=== PATIENT | female | born 2000 | race Caucasian/White ===

== ENCOUNTER 2020-06-04 09:33 | Emergency (ER) | payer BC, SELFPAY ==
[2020-06-04 09:51] VITALS: BP 120/65; PULSE 56; RESP 16; TEMP 36.3; O2SAT 99
--- NOTE | 2020-06-04 09:53 | ED.URI ---
HPI - URI/Sore Throat General Chief Complaint: Upper Respiratory Infection Stated Complaint: Sore throat,Congestion Time Seen by Provider: 06/04/20 09:54 Source: patient and RN notes reviewed Mode of arrival: ambulatory Limitations: no limitations History of Present Illness HPI Narrative: 19-year-old female presents with concern for 3-day history of sore throat, nasal congestion, postnasal drainage, dry cough, intermittent body aches and chills. Reports has been taking NyQuil with some relief. She denies any known sick contacts. Denies loss of sense of taste or smell, shortness of breath. MD elicited complaint: sore throat Related Data Home Medications Medication Instructions Recorded Confirmed norethindrone-e.estradiol-iron tablet 06/04/20 Allergies Allergy/AdvReac Type Severity Reaction Status Date / Time No Known Allergies Allergy Unverified 06/04/20 09:42 Review of Systems Review of Systems: Narrative: CONSTITUTIONAL: Reports malaise, chills. Denies sweats, or fever. EYES: Denies visual changes, redness, or discharge. ENT: Reports rhinorrhea, congestion, sore throat. Denies sinus pain, otalgia. CARDIOVASCULAR: Denies chest pain, palpitations, or edema. RESPIRATORY: Reports dry cough. Denies dyspnea. GASTROINTESTINAL: Denies abdominal pain, nausea, vomiting, diarrhea SKIN: Denies rash or itching. MUSCULOSKELETAL: Reports myalgia. NEUROLOGIC: Reports headache. All systems reviewed & are unremarkable except as noted in HPI and below PMFSH Social History Social History Smoking status: Never smoker Alcohol intake: never Comments At time of signature, agree with nursing past medical, surgical, social and family history. There is no relevant family history pertinent to the presenting complaint Exam Narrative: Exam Narrative: GENERAL: Well-appearing, well-nourished, and in no acute distress. HEAD: Normocephalic EYES: PERRLA, conjunctivae clear ENT: Nares clear, turbinates edematous and erythematous, clear discharge. Mucous membranes moist. TM pearly macias with dull light reflex bilaterally; no tragal tenderness. Oropharynx mildly erythematous without lesions. Tonsils enlarged and without exudate, no drooling, no hoarseness, no trismus, uvula midline. NECK: Supple. No lymphadenopathy CHEST: Clear to auscultation, breath sounds equal. No wheezing, rhonchi, rales, or stridor. No respiratory distress, speaks in full sentences. HEART: Regular rate and rhythm. No murmur heard. SKIN: Warm, dry, no rash. NEURO: Alert and oriented x3. PSYCH: Normal mood and affect Course Course Emergency Course: Patient is aware of diagnosis, understands and agrees to treatment plan. Anticipatory guidance given. Patient agrees to follow-up as directed and is aware of reasons to seek care at the emergency department. Portions of this record may have been created with voice recognition software Vital Signs Vital signs: Vital Signs Temperature 97.4 F L 06/04/20 09:51 Pulse Rate 56 L 06/04/20 09:51 Respiratory Rate 16 06/04/20 09:51 Blood Pressure 120/65 06/04/20 09:51 Pulse Oximetry 99 06/04/20 09:51 Temperature 97.4 F L 06/04/20 09:51 Pulse Rate 56 L 06/04/20 09:51 Respiratory Rate 16 06/04/20 09:51 Blood Pressure 120/65 06/04/20 09:51 Pulse Oximetry 99 06/04/20 09:51 Reviewed. MDM - URI/Sore Throat MDM Narrative Medical decision making narrative: Differential diagnosis considered: Villegas virus, strep pharyngitis, allergic rhinitis, upper respiratory tract infection, sinusitis, rhinosinusitis, nasopharyngitis. viral pharyngitis, otitis media, otitis externa, pneumonia, bronchitis, viral cough syndrome, viral syndrome, and influenza. Exam findings show no acute concerns or changes; patient is non-toxic appearing and is in no distress. Patient is appropriate for outpatient treatment and follow-up. Lab Data Attestation: I reviewed the patient's lab results. Labs: Strep Screen
[2020-06-05 18:30] LABS: SARS-CoV-2 RNA PCR Negative
== END 2020-06-04 10:15 | disposition home or self-care (01) ==
PROVIDERS: Emergency Provider Nurse Practitioner; PCP Pediatrics
DX: J06.9 Acute upper respiratory infection, unspecified (principal); Z20.822 Contact with and (suspected) exposure to COVID-19
CPT/HCPCS: 87081; 87426; 87880; 99213; C9803; G0463; U0003; U0005

== ENCOUNTER 2020-10-02 10:13 | Emergency (ER) | payer BC, SELFPAY ==
[2020-10-02 10:37] VITALS: BP 105/54; PULSE 70; RESP 16; TEMP 36.9; O2SAT 100
[2020-10-02 11:01] VITALS: BP 139/87; PULSE 72; RESP 18; TEMP 36.8; O2SAT 100
--- NOTE | 2020-10-02 11:01 | ED.EAR ---
HPI - Ear Problem General Chief complaint: Upper Respiratory Infection Stated complaint: Lt ear pain, headache Source: patient and RN notes reviewed Limitations: no limitations History of Present Illness HPI Narrative: The patient, a non-smoker/nondrinker, presents with couple day, nearly 1/2-week history of left ear discomfort. No discharge, swimming/water exposure, fever, URI?sinusitis,cough, loss of taste/smell, CP. Symptoms are mild, distinctly worse with palpation Related Data Home Medications Medication Instructions Recorded Confirmed norethindrone-e.estradiol-iron tablet 06/04/20 Allergies Allergy/AdvReac Type Severity Reaction Status Date / Time No Known Allergies Allergy Unverified 06/04/20 09:42 Review of Systems Review of Systems: Narrative: General/Constitutional: No weight loss,fever Eyes: N0: Redness,discharge Ears/Nose/Throat: No: Epistaxis,ear discharge Respiratory: Denies: Hemoptysis Gastrointestinal: No Vomiting, Bleeding-rectal Skin: No Lumps, eruption Neurologic: No Focal Weakness,Sz Hematologic: Denies: Petechiae/Purpura Psychiatric: No: Suicida ideationl All Other Systems: Reviewed and Negative PMFSH Social History Social History Smoking status: Never smoker Alcohol intake: never Comments At time of signature, agree with nursing past medical, surgical, social and family history. There is no relevant family history pertinent to the presenting complaint Exam Narrative: Exam Narrative: General Appearance: Well appearing, Well nourished EYE: PERRLA, Conjunctiva clear Ears: Left EAC with mucopus and TM obscured; right -auditory canal normal, TM normal Nose: no rhinorrhea, Mucousal erythema Mouth/Throat: MM moist, Uvula midline, no pharyngeal erythema Neck: Supple, No adenopathy Respiratory: No respiratory distress, Breath sounds equal, Musculoskeletal: Non tender, Normal strength Skin: Warm, Dry Neurological: A&O x3, Normal affect Course Vital Signs Vital signs: Vital Signs Temperature 98.4 F 10/02/20 10:37 Pulse Rate 70 10/02/20 10:37 Respiratory Rate 16 10/02/20 10:37 Blood Pressure 105/54 L 10/02/20 10:37 Pulse Oximetry 100 10/02/20 10:37 Temperature 98.2 F 10/02/20 11:01 Pulse Rate 72 10/02/20 11:01 Respiratory Rate 18 10/02/20 11:01 Blood Pressure 139/87 10/02/20 11:01 Pulse Oximetry 100 10/02/20 11:01 Medical Decision Making Vital Signs Vital Signs: Vital Signs Temperature 98.4 F 10/02/20 10:37 Pulse Rate 70 10/02/20 10:37 Respiratory Rate 16 10/02/20 10:37 Blood Pressure 105/54 L 10/02/20 10:37 Pulse Oximetry 100 10/02/20 10:37 Temperature 98.2 F 10/02/20 11:01 Pulse Rate 72 10/02/20 11:01 Respiratory Rate 18 10/02/20 11:01 Blood Pressure 139/87 10/02/20 11:01 Pulse Oximetry 100 10/02/20 11:01 Discharge Plan Discharge Clinical Impression: Otalgia, left ear Patient Disposition: Home, Self-Care Condition: Stable Instructions: Swimmer's Ear (ED) Prescriptions: New amoxicillin 875 mg tablet 875 mg PO Q12H Qty: 14 RF: 0 mfhjcxoy-iguwxhige-GG 3.5-10,000-1 mg/mL-unit/mL-% solution 4 drop RIGHT EAR Q8H Qty: 10 RF: 0 No Action norethindrone-e.estradiol-iron 1 mg-20 mcg (21)/75 mg (7) tablet RF: 0 Follow-up/Referrals: Mayela Patton MD [Primary Care Provider] -
== END 2020-10-02 11:11 | disposition home or self-care (01) ==
PROVIDERS: Emergency Provider Emergency Medicine; PCP Pediatrics
DX: H92.02 Otalgia, left ear (principal)
CPT/HCPCS: 99213; G0463

== ENCOUNTER 2021-07-25 10:26 | Emergency (ER) | payer BC, SELFPAY ==
[2021-07-25 10:39] VITALS: BP 101/51; PULSE 58; RESP 16; TEMP 36.6; O2SAT 100
--- NOTE | 2021-07-25 10:43 | ED.FEMALEGU ---
HPI - Female Genitourinary General Chief complaint: Urogenital-Female Stated complaint: uti complaint Time Seen by Provider: 07/25/21 10:44 Source: patient and RN notes reviewed Mode of arrival: ambulatory Limitations: no limitations History of Present Illness HPI Narrative: 20-year-old female presented for complaint of urinary frequency and burning with urination for about 3 days. Also endorses some lower abdominal pain and subjective fever. She denies nausea, vomiting, diarrhea, hematuria, flank pain, or vaginal discharge or irregular bleeding. She has not taken anything for symptoms. Related Data Home Medications Medication Instructions Recorded Confirmed norethindrone-e.estradiol-iron 1 tablet DAILY 07/25/21 07/25/21 [Blisovi Fe 03/28 (28)] Allergies Allergy/AdvReac Type Severity Reaction Status Date / Time No Known Allergies Allergy Verified 07/25/21 10:43 Review of Systems Review of Systems: CONSTITUTIONAL: Denies body aches, fever, chills, or sweats. CARDIOVASCULAR: Denies chest pain, palpitations, or edema. RESPIRATORY: Denies cough or dyspnea. GASTROINTESTINAL: Denies abdominal pain, nausea, vomiting, or diarrhea. GENITOURINARY: Reports dysuria, frequency SKIN: Denies rash, itching, or wounds. MUSCULOSKELETAL: Denies back pain or myalgia. [facility] Social History Social History Smoking status: Never smoker Alcohol intake: never Comments At time of signature, I have reviewed and agree with nursing past medical, surgical, social and family history unless otherwise noted. Please see nursing chart for further information. There is no relevant family history pertinent to the presenting complaint Exam Narrative: GENERAL: Well-appearing and in no acute distress. HEAD: Normocephalic EYES: EOMI. ENT: Mucous membranes pink and moist. NECK: Normal AROM. Supple. CHEST: No respiratory distress. Clear to auscultation. HEART: Regular rate and rhythm. ABDOMEN: Soft, nontender, nondistended, normal active bowel sounds. No CVA tenderness MUSCULOSKELETAL: No bony tenderness. SKIN: Warm, dry, no rash. NEURO: No focal deficits. Alert and oriented x3. Gait steady. PSYCH: Normal affect. No signs of depression or anxiety. Course Course Emergency Course: Patient is aware of diagnosis, understands and agrees to treatment plan. Anticipatory guidance given. Patient agrees to follow-up as directed and is aware of reasons to seek care at the emergency department. Portions of this record may have been created with voice recognition software Level of Care: Express Care Visit Vital Signs Vital signs: Vital Signs Temperature 97.8 F 07/25/21 10:39 Pulse Rate 58 L 07/25/21 10:39 Respiratory Rate 16 07/25/21 10:39 Blood Pressure 101/51 L 07/25/21 10:39 Pulse Oximetry 100 07/25/21 10:39 Temperature 97.8 F 07/25/21 10:39 Pulse Rate 58 L 07/25/21 10:39 Respiratory Rate 16 07/25/21 10:39 Blood Pressure 101/51 L 07/25/21 10:39 Pulse Oximetry 100 07/25/21 10:39 Reviewed MDM - Female Genitourinary Differential Diagnosis Differential diagnosis: Likely urinary tract infection, bacterial vaginosis and cystitis Lab Data Attestation: I reviewed the patient's lab results. Labs: Urine Characteristics Clear Discharge Plan Discharge Clinical Impression: Urinary tract infection Qualifiers: Urinary tract infection type: site unspecified Hematuria presence: without hematuria Qualified Code(s): N39.0 - Urinary tract infection, site not specified Patient Disposition: Home, Self-Care Condition: Stable Instructions: Antibiotic Form, Urinary Tract Infection in Women (ED) Additional Instructions: Your urine shows infection today. Take the antibiotic as prescribed until gone. The urine will be sent of for a culture to identify what type of bacteria is causin
== END 2021-07-25 11:00 | disposition home or self-care (01) ==
PROVIDERS: Emergency Provider Nurse Practitioner Family
DX: N39.0 Urinary tract infection, site not specified (principal)
CPT/HCPCS: 81003; 87086; 99213; G0463

== ENCOUNTER 2021-10-14 11:38 | Emergency (ER) | payer BC, SELFPAY ==
[2021-10-14 11:59] VITALS: BP 111/62; PULSE 67; RESP 16; TEMP 36.9; O2SAT 100
--- NOTE | 2021-10-14 12:48 | ED.EAR ---
HPI - Ear Problem General Chief complaint: Ear Stated complaint: Lt Ear Irritation Source: patient Mode of arrival: ambulatory Limitations: no limitations History of Present Illness HPI Narrative: 19-year-old female presents to [facility] with complaints of left ear pain for the past 2 to 3 weeks. Patient has been taking opha-[id number] Motrin Tylenol with minimal relief. Patient reports that she also started with congestion this morning. Patient denies fever, bodies, chills, nausea, vomiting or diarrhea. MD Complaint: ear pain Location: left ear Duration: constant Severity: mild Discharge from ear: Reports no Related Data Home Medications Medication Instructions Recorded Confirmed norethindrone 1 mg-ethinyl 1 tablet DAILY 07/25/21 10/14/21 estradiol 20 mcg (21)-iron 75 mg (7) tablet (Blisovi Fe 03/28 (28)) Allergies Allergy/AdvReac Type Severity Reaction Status Date / Time No Known Allergies Allergy Verified 10/14/21 11:58 Review of Systems Constitutional: Constitutional: Denies chills, Denies fatigue, Denies fever(s) and Denies weakness ENT: Denies vertigo, Denies dizziness and Denies epistaxis Comments: Left ear pain Cardiovascular: Cardiovascular: Denies chest pain and Denies rapid heart rate Respiratory: Respiratory: Denies chest congestion, Denies cough and Denies dyspnea Gastrointestinal: Gastrointestinal: Denies abdominal pain, Denies bloating, Denies constipation and Denies heartburn Musculoskeletal: Musculoskeletal: Denies arthralgias and Denies joint swelling Integumentary/Breasts: Skin/Breast: Denies rash Endocrine: Endocrine: Denies fatigue PMFSH Family History Family History (Updated 10/14/21 @ 12:50 by Cass Caballero APRN) Mother Diabetes mellitus Social History Social History Smoking status: Never smoker Alcohol intake: never Exam Const: General: healthy appearing Nutritional Appearance: well nourished Orientation/consciousness: patient oriented x3 Limitations: no limitations HENMT: Ears: Abnormal EAC present erythema on the left and edema on the left and TM abnormal bulging on the left, dull on the left and erythematous on the left General nose exam: Normal external nose present Mouth: Yes Normal oral and palatal mucosa present Teeth and gingiva: dentition normal Throat: posterior oropharynx normal Neck: Neck: normal visual inspection Resp: Effort & Inspection: normal respiratory effort and not labored Auscultation: clear to auscultation bilaterally and no crackles Cardio: Rate: regular rate Rhythm: regular rhythm Skin: General skin exam: normal color Rashes: no rashes Wounds: no wounds Neuro: General: patient oriented x3 Speech: normal speech Gait exam (Neuro): Normal gait present Extrem: General: normal to inspection Psych: Mental Status: mental status grossly normal Affect: normal affect Attitude: cooperative Course Course Level of Care: Express Care Visit Vital Signs Vital signs: Vital Signs Temperature 36.9 C 10/14/21 11:59 Pulse Rate 67 10/14/21 11:59 Respiratory Rate 16 10/14/21 11:59 Blood Pressure 111/62 10/14/21 11:59 Pulse Oximetry 100 10/14/21 11:59 Oxygen Delivery Room Air 10/14/21 11:59 Temperature 36.9 C 10/14/21 11:59 Pulse Rate 67 10/14/21 11:59 Respiratory Rate 16 10/14/21 11:59 Blood Pressure 111/62 10/14/21 11:59 Pulse Oximetry 100 10/14/21 11:59 Oxygen Delivery Room Air 10/14/21 11:59 Medical Decision Making MDM Narrative Medical decision making narrative: Patient agrees to take medications as prescribed, patient agrees to avoid getting water in ears. Patient agrees to alternate Motrin and Tylenol as needed for pain. Differential Diagnosis Differential Diagnosis: Cerumen impaction, otalgia, viral illness Vital Signs Vital Signs: Vital Signs Temperature 36.9 C 10/14/21 11:59 Pulse Rate 67 0
== END 2021-10-14 12:56 | disposition home or self-care (01) ==
PROVIDERS: Emergency Provider Nurse Practitioner Family; PCP Family Medicine
DX: H60.92 Unspecified otitis externa, left ear (principal); H66.92 Otitis media, unspecified, left ear
CPT/HCPCS: 99213; G0463